=== PATIENT | female | born 1965 | race Caucasian/White ===

== ENCOUNTER 2019-04-06 05:50 | Day surgery (SDC) | payer BC ==
[~2019-04-06] VITALS: Ht 165.1 cm; Wt 74.8 kg
[2019-04-06] MEDS ORDERED: CEFAZOLIN SOD 2 GM in D5W 50 ML IV ONE (07:15)
[2019-04-06] MEDS ORDERED: CEFAZOLIN 2 GM IVPB PREMIX 50 ML IV ONE (07:20)
[2019-04-06] MEDS ORDERED: ONDANSETRON HCL 4 MG/2 ML VIAL IVP PRN (08:00)
[2019-04-06] MEDS ORDERED: fentaNYL CITRATE/PF 100 MCG/2 ML AMP IVP PRN ×2 (08:00)
[2019-04-06] MEDS ORDERED: KETOROLAC TROMETHAMINE 30 MG VIAL IVP PRN (08:00)
[2019-04-06] MEDS ORDERED: ONDANSETRON HCL 4 MG/2 ML VIAL IM PRN (10:15)
[2019-04-06] MEDS ORDERED: HYDROcodone/ACETAMIN 5-325 MG TAB (NORCO/ VICODIN) PO PRN (10:15)
[2019-04-06] MEDS ORDERED: OXYCODONE/ACETAMINOPHEN 5-325 TABLET PO PRN ×2 (10:15)
[2019-04-06] MEDS ORDERED: KETOROLAC TROMETHAMINE 30 MG VIAL ONE (10:30)
[2019-04-06] MEDS ORDERED: PROPOFOL 200MG/ 20ML VIAL (DIPRIVAN) IV ONE (10:30)
[2019-04-06] MEDS ORDERED: BUPIVACAINE /PF 0.25% 30 ML VIAL INJ ONE (10:30)
[2019-04-06] MEDS ORDERED: LR 1,000 ML IV.SOLN IV ONE (10:30)
[2019-04-06] MEDS ORDERED: NEOSTIGMINE METHYLSULFATE 1 MG/ML, 10 ML VIAL ONE (10:30)
[2019-04-06] MEDS ORDERED: fentaNYL CITRATE/PF 100 MCG/2 ML AMP ONE ×2 (10:30→11:21)
[2019-04-06] MEDS ORDERED: LIDOCAINE 2%, 20 ML MDV ONE (10:30)
[2019-04-06] MEDS ORDERED: GLYCOPYRROLATE 0.2 MG/ML VIAL ONE (10:30)
[2019-04-06] MEDS ORDERED: WATER FOR IRRIGATION,STERILE 1,000 ML IRRIG.SOLN IR ONE (10:30)
[2019-04-06] MEDS ORDERED: BUPIVACAINE /PF 0.5% 30 ML VIAL ONE (10:30)
[2019-04-06] MEDS ORDERED: MIDAZOLAM HCL 5 MG/ML VIAL (VERSED) IV ONE (10:30)
[2019-04-06] MEDS ORDERED: ROCURONIUM BROMIDE 10 MG/ML (ZEMURON) ONE (10:30)
[2019-04-06] MEDS ORDERED: ROPIVACAINE HCL/PF 0.2% EPIDURAL 200 ML PLAST..BAG ONE (10:30)
[2019-04-06] MEDS ORDERED: SEVOFLURANE 15 MIN GAS INH ONE (10:30)
[2019-04-06] MEDS ORDERED: ONDANSETRON HCL 4 MG/2 ML VIAL ONE (11:17)
[2019-04-06] MEDS ORDERED: METOCLOPRAMIDE HCL 10 MG/2 ML VIAL IVP ONE (12:45)
[2019-04-06] MEDS ORDERED: MEPERIDINE HCL/PF 50 MG/ML AMP IM ONE (13:00)
[2019-04-06] MEDS ORDERED: MEPERIDINE HCL/PF 100 MG/ML AMP ONE (13:02)
[2019-04-06 13:23] LABS: BASOPHILS % (AUTO) 0.2 % (0.0-2.0); EOSINOPHILS % (AUTO) 0.1 % (0.0-4.0); HEMATOCRIT 34.5 % (36-48); HEMOGLOBIN 11.6 g/dL (12.0-16.0); LYMPHOCYTES # (AUTO) 1.4 K/uL (1.0-5.5); MEAN CORPUSCULAR HEMOGLOBIN 28 pg (27-31); MEAN CORPUSCULAR HGB CONC 34 % (32-36); MEAN CORPUSCULAR VOLUME 82 fL (79.0-98.0); MONOCYTES # (AUTO) 0.4 K/uL (0.0-1.0); MONOCYTES % (AUTO) 3.2 % (1.7-9.3); NEUTROPHILS # (AUTO) 10.8 K/uL (1.8-7.7); NEUTROPHILS % (AUTO) 85.5 % (40.0-70.0); PLATELET COUNT (AUTO) 254 K/uL (130-430); RED BLOOD CELL COUNT(AUTO) 4.21 MIL/uL (4.2-6.2); WHITE BLOOD COUNT (AUTO) 12.6 K/uL (4.8-10.8)
--- NOTE | 2019-04-06 18:01 | NUR ---
ADMISSION: The patient, RADU WALTON, 54 y/o, F admitted by Dr Lopes , was given written information regarding hospital policies, unit procedures and contact persons.
[2019-04-06 18:16] VITALS: BP_SYST 117
[2019-04-06] MEDS ORDERED: LIP10 PO (18:37)
[2019-04-06] MEDS ORDERED: SERT25TA PO (18:37)
--- NOTE | 2019-04-06 18:53 | NUR ---
CLOSING RN NOTE patient is resting in bed, visitors at the bedside, patient is feeling nauseous at this time but does not want any prn medications at this time, she stated that after vomiting a lot she feels much better, patient's curz was removed at 1330 and has not voided yet, [facility] to do bladder scan after 1930 if patient has not voided, patient feels weak to ambulate, patient has already received DC instructions and packet, patient can be DC when stable.
--- NOTE | 2019-04-06 19:15 | NUR ---
OPENING NOTES RECEIVED PATIENT IN BED AAO X4. BREATHING UNLABORED ON ROOM AIR. AT BEDSIDE. BED IN LOWEST LOCKED POSITION. CALL LIGHT WITH IN REACH. PATIENT HAVE NOT MADE ANY URINE YET SINCE [facility] CATH REMOVED
--- NOTE | 2019-04-06 20:20 | NUR ---
OOB PATIENT ASSISTED OUT OF BED TO BED SIDE COMMODE. PATIENT VOMITED SMALL AMOUNT AFTER EATING JELO. PATIENT ABLE TO PUT OUT MODERATE AMOUNT OF CLEAR URINE. VITAL SIGNS STABLE. ABDOMINAL DRESSING INTACT NO BLEEDING NOTED. Q PUMP INTACT.
--- NOTE | 2019-04-06 20:35 | NUR ---
DRESSING ABDOMINAL DRESSINGS DRY AND INTACT. NO BLEEDING NOTED. Q PUMP INTACT.
[2019-04-06 21:02] VITALS: BP_SYST 110
--- NOTE | 2019-04-06 21:06 | NUR ---
Paged Dr. Moses Crandall spoke to the doctor.
--- NOTE | 2019-04-06 21:08 | NUR ---
MD SPOKE WITH DR. GONZALEZ MADE AWARE PATIENT ALREADY HAD URINE OUTPUT. VITAL SIGNS STABLE BUT STILL NAUSEATED. PER MD PATIENT CAN GO HOME TONIGHT GIVE ZOFRAN BEFORE DISCHARGE. PATIENT TO GO HOME WITH Q PUMP PER MD.
--- NOTE | 2019-04-06 21:39 | NUR ---
DISCHARGE INSTRUCTIONS DISCHARGE INSTRUCTIONS GIVEN TO PATIENT. PATIENT REFUSED ZOFRAN IM.
--- NOTE | 2019-04-06 21:50 | NUR ---
DISCHARGED PATIENT LEFT FACILITY IN STABLE CONDITION ACCOMPANIED BY . WHEELED TO LOBBY BY CLARE REDDY. DISCHARGE PACKET GIVEN.
== END 2019-04-06 21:50 | disposition home or self-care (01) ==
LOC: STU 05:50 → SDS 05:50 → SMU 18:01 → SDS 21:50
PROVIDERS: ATTEND Specialist
DX: N93.8 Other specified abnormal uterine and vaginal bleeding (principal); N92.6 Irregular menstruation, unspecified; D25.1 Intramural leiomyoma of uterus; F41.9 Anxiety disorder, unspecified; E78.00 Pure hypercholesterolemia, unspecified; Z79.899 Other long term (current) drug therapy
CPT/HCPCS: 36415; 58552; 64488; 85025; 88304; 88307; C1727; J0690; J1885; J2001; J2175; J2250; J2405; J2704; J2710; J3010; J3490 ×3; J7120; E0190

== ENCOUNTER 2022-06-17 07:04 | Day surgery (SDC) | payer BC ==
[~2022-06-17] VITALS: Ht 165.1 cm; Wt 72.6 kg
[~2022-06-17 07:04] MED LIST: LIP10 PO; SERT25TA PO
[2022-06-17] MEDS ORDERED: LIDOCAINE 2%, 20 ML MDV ONE (10:09)
[2022-06-17] MEDS ORDERED: PROPOFOL 200MG/ 20ML VIAL (DIPRIVAN) IV ONE (10:09)
[2022-06-17 11:30] VITALS: BP_SYST 132
== END 2022-06-17 11:30 | disposition home or self-care (01) ==
LOC: SDS 07:04 → SMU 07:05 → SDS 11:30
PROVIDERS: ATTEND Internal Medicine Gastroenterology
DX: Z12.11 Encounter for screening for malignant neoplasm of colon (principal); K63.5 Polyp of colon; K29.50 Unspecified chronic gastritis without bleeding; K44.9 Diaphragmatic hernia without obstruction or gangrene; K25.9 Gastric ulcer, unspecified as acute or chronic, without hemorrhage or perforation; K64.9 Unspecified hemorrhoids; R13.10 Dysphagia, unspecified; E78.00 Pure hypercholesterolemia, unspecified; Z80.0 Family history of malignant neoplasm of digestive organs; Z90.710 Acquired absence of both cervix and uterus; Z20.822 Contact with and (suspected) exposure to COVID-19
CPT/HCPCS: 71046; 87426; 36415 ×2; 93005; 45380; 43239; 87081; 88305; 88312; 88313; J2001; J2704